=== PATIENT | female | born 1960 | race Caucasian/White ===

== ENCOUNTER → 2016-07-24 | Outpatient (REF) | payer OTHER ==
[~2016-07-24] MED LIST: CALCIUM CITRATE+D PO; ENAL5TAB PO; FAMOTIDINE PO; FERRO SEQUELS PO; IBUP200T2 PO; IMIP25TA2 PO; IRON PO; IRON28TA PO; LEVOTHYROXINE PO; LISIPOW PO; METOPROLOL PO; MULTIPLE VIT PO; VICO5TAB PO; VITAMIN B 12 PO; VITAMIN D PO; [UNRECOGNIZED DRUG - OTHER] PO
[2016-07-24 14:49] LABS: PERCENT SATURATION 22.6 % (13.2-37.4)
[2016-07-25 12:08] LABS: PRETREATED FOLATE FOR RBCFOL 11.6 NG/ML
== END ==
LOC: M LAB REF 13:36
PROVIDERS: ATTEND Nurse Practitioner Adult Health
DX: R74.8 Abnormal levels of other serum enzymes (principal); K91.2 Postsurgical malabsorption, not elsewhere classified

== ENCOUNTER → 2017-01-01 | Outpatient (REF) | payer OTHER ==
[2017-01-01 12:41] LABS: EOS # 0.1 K/mm3 (0.0-0.50); EOS % 1.2 % (0.0-3.0); LARGE UNSTAINED CELL # 0.1 K/mm3 (0.0-0.4); LARGE UNSTAINED CELL % 1.6 % (0.0-4.0); LYMPH % 35.8 % (24.0-44.0); MEAN CORPUSCULAR HEMOGLOBIN 31.3 pg (27.0-33.0); MEAN CORPUSCULAR HGB CONC 33.5 g/dl (32.0-36.5); MEAN CORPUSCULAR VOLUME 93.3 fl (80.0-96.0); MONO # 0.3 K/mm3 (0.0-0.8); MONO % 5.7 % (0.0-5.0); NEUTROPHILS # 2.9 K/mm3 (1.8-7.7); NEUTROPHILS % 54.6 % (36.0-66.0); PLATELET COUNT, AUTOMATED 245 k/mm3 (150-450); RED CELL DISTRIBUTION WIDTH 12.3 % (11.5-14.5); WHITE BLOOD COUNT 5.3 K/mm3 (4.0-10.0)
[2017-01-01 13:02] LABS: ALBUMIN 3.8 GM/DL (3.2-5.2); ALBUMIN/GLOBULIN RATIO 1.19 (1.00-1.93); ALKALINE PHOSPHATASE 97 U/L (45-117); ALT/SGPT 25 U/L (12-78); ANION GAP 7 MEQ/L (8-16); AST/SGOT 13 U/L (15-37); BILIRUBIN,TOTAL 0.4 MG/DL (0.2-1.0); BLOOD UREA NITROGEN 11 MG/DL (7-18); CALCIUM LEVEL 8.9 MG/DL (8.5-10.1); CARBON DIOXIDE LEVEL 29 MEQ/L (21-32); CHLORIDE LEVEL 105 MEQ/L (98-107); CREATININE FOR GFR 0.79 MG/DL (0.55-1.02); FERRITIN 62 NG/ML (8-252); GLOMERULAR FILTRATION RATE > 60.0 (>51); GLUCOSE, FASTING 81 MG/DL (70-105); MAGNESIUM LEVEL 2.1 MG/DL (1.8-2.4); PERCENT SATURATION 35.8 % (13.2-37.4); PHOSPHORUS LEVEL 3.3 MG/DL (2.5-4.9); POTASSIUM SERUM 4.2 MEQ/L (3.5-5.1); SODIUM LEVEL 141 MEQ/L (136-145); TOTAL IRON BINDING CAPACITY 293 UG/DL (250-450)
[2017-01-01 13:05] LABS: VITAMIN B12 LEVEL 1725 PG/ML (247-911)
[2017-01-02 10:56] LABS: PRETREATED FOLATE FOR RBCFOL 13.8 NG/ML
== END ==
LOC: M LABDRWAD 12:16
PROVIDERS: ATTEND Surgery
DX: K91.2 Postsurgical malabsorption, not elsewhere classified (principal); E55.9 Vitamin D deficiency, unspecified; Z98.84 Bariatric surgery status

== ENCOUNTER → 2017-08-14 | Outpatient (CLI) | payer OTHER | LOC: M WHC 11:17 | DX: Z12.31 Encounter for screening mammogram for malignant neoplasm of breast (principal) ==

== ENCOUNTER 2017-08-20 10:17 | Day surgery (SDC) | payer OTHER ==
[2017-08-20] MEDS: NS 1,000 ML IV (10:30)
[2017-08-20] MEDS ORDERED: PROPOFOL 200 MG/20 ML VIAL As Ordered (11:45)
[2017-08-20] MEDS ORDERED: LIDOCAINE 2% INJ 100 MG/5 ML SDV (FOR ANES.) As Ordered (11:45)
== END 2017-08-20 12:12 | disposition home or self-care (01) ==
LOC: M OPP 10:17
DX: Z12.11 Encounter for screening for malignant neoplasm of colon (principal); K57.30 Diverticulosis of large intestine without perforation or abscess without bleeding; E11.9 Type 2 diabetes mellitus without complications; E03.9 Hypothyroidism, unspecified; I73.00 Raynaud's syndrome without gangrene; E66.9 Obesity, unspecified; G47.30 Sleep apnea, unspecified; Z79.890 Hormone replacement therapy; Z98.0 Intestinal bypass and anastomosis status; Z98.890 Other specified postprocedural states; Z83.71 Family history of colonic polyps; Z86.010 Personal history of colon polyps; Z87.891 Personal history of nicotine dependence; Z88.5 Allergy status to narcotic agent
CPT/HCPCS: 45378

== ENCOUNTER → 2017-09-04 | Outpatient (CLI) | payer OTHER | LOC: M WUC 17:31 | DX: S16.1XXA Strain of muscle, fascia and tendon at neck level, initial encounter (principal) | CPT/HCPCS: 72052 ==

== ENCOUNTER 2019-04-19 08:06 | Emergency (ER) | payer OTHER ==
[~2019-04-19] VITALS: Ht 175.3 cm; Wt 104.5 kg
[~2019-04-19 08:06] MED LIST changes: +AMBI6.25 PO; +MULT1TAB10 PO; +VERA180C3 PO; +VITA500046 PO
[2019-04-19] MEDS ORDERED: OMEP-221 (08:19)
[2019-04-19] MEDS ORDERED: LEVO137T2 (08:19)
[2019-04-19] MEDS ORDERED: PROAAER10 (08:19)
[2019-04-19] MEDS ORDERED: HYDR25TAB (08:19)
[2019-04-19 09:01] LABS: BASO % 0.5 % (0.0-1.0); EOS # 0.1 10^3/uL (0.0-0.5); EOS % 1.2 % (0.0-3.0); HEMATOCRIT 41.3 % (36.0-47.0); HEMOGLOBIN 13.6 g/dl (12.0-15.5); LYMPH # 1.5 10^3/uL (1.5-5.0); LYMPH % 25.3 % (24.0-44.0); MEAN CORPUSCULAR HEMOGLOBIN 31.5 pg (27.0-33.0); MEAN CORPUSCULAR HGB CONC 32.9 g/dl (32.0-36.5); MEAN CORPUSCULAR VOLUME 95.6 fl (80.0-96.0); MONO # 0.3 10^3/uL (0.0-0.8); MONO % 5.7 % (0.0-5.0); NEUTROPHILS # 3.9 10^3/uL (1.5-8.5); PLATELET COUNT, AUTOMATED 218 10^3/uL (150-450); RED BLOOD COUNT 4.32 10^6/uL (4.00-5.40); WHITE BLOOD COUNT 5.8 10^3/uL (4.0-10.0)
[2019-04-19 09:13] LABS: ALBUMIN 3.6 GM/DL (3.2-5.2); ALT/SGPT 47 U/L (12-78); BILIRUBIN,DIRECT < 0.1 MG/DL (0.0-0.2); BILIRUBIN,TOTAL 0.3 MG/DL (0.2-1.0); BLOOD UREA NITROGEN 13 MG/DL (7-18); CALCIUM LEVEL 8.8 MG/DL (8.5-10.1); CARBON DIOXIDE LEVEL 27 MEQ/L (21-32); CHLORIDE LEVEL 107 MEQ/L (98-107); CK-MB VALUE MASS 1.7 NG/ML (<3.6); CPK CREATINE PHOSPHOKINASE 91 U/L (26-192); CREATININE FOR GFR 0.76 MG/DL (0.55-1.30); GLOMERULAR FILTRATION RATE > 60.0 (>51); GLUCOSE, FASTING 91 MG/DL (70-100); MB/CK RELATIVE INDEX 1.87 (< OR =4); NT-PRO BNP 44 PG/ML (<125); POTASSIUM SERUM 3.9 MEQ/L (3.5-5.1); SODIUM LEVEL 137 MEQ/L (136-145); THYROID STIMULATING HORMONE 0.369 uIU/ML (0.358-3.740); TOTAL PROTEIN 6.7 GM/DL (6.4-8.2); TROPONIN I < 0.02 NG/ML (< 0.10)
--- NOTE | 2019-04-19 09:28 | REP ---
Portable chest x-ray: Single view. History: Chest pain Comparison chest x-ray: February 09, 2012. Findings: Monitoring electrodes are seen. Lungs are well inflated and clear. The pleural angles are sharp. Heart size is normal. No significant bony abnormality is seen. Impression: No active cardiopulmonary disease seen. Electronically Signed by Adeel Richards MD 04/19/2019 09:18 A
[2019-04-19 09:53] LABS: INR 0.96; PARTIAL THROMBOPLASTIN TIME 26.2 SECONDS (25.0-38.4); PROTHROMBIN TIME 12.5 SECONDS (11.8-14.0)
[2019-04-19 09:56] LABS: D-DIMER QUANT 724.79 ng/ml (<500)
[2019-04-19 13:21] LABS: CK-MB VALUE MASS 1.5 NG/ML (<3.6); CPK CREATINE PHOSPHOKINASE 108 U/L (26-192); MB/CK RELATIVE INDEX 1.39 (< OR =4); TROPONIN I < 0.02 NG/ML (< 0.10)
[2019-04-19] MEDS ORDERED: ISOVUE-370 76% 100ML VIAL (Q9967) As Ordered ONE (13:31)
[2019-04-19 15:00] VITALS: BP 115/69
--- NOTE | 2019-04-19 15:10 | REP ---
CT PULMONARY ANGIOGRAM: WITH IV CONTRAST. HISTORY: Chest pain. COMPARISON STUDIES: Comparison CT ANGIO, February 09, 2012. CONTRAST DOSE: 75 mL of Isovue [address] TECHNIQUE: Helical scanning is acquired and overlapping 1.5 mm and contiguous 3 mm axial images are reformatted. In addition, maximum intensity projection and multiplanar re-formation images are generated in sagittal and coronal imaging projections. CT PULMONARY ANGIOGRAPHIC FINDINGS: There is good opacification of the pulmonary arterial tree. No filling defect or vessel cutoff is seen to suggest pulmonary embolus. Thoracic aorta shows no evidence of aneurysm or dissection. No hilar or mediastinal mass or adenopathy is appreciated. There is no evidence of pleural or pericardial effusion. There is a hiatal hernia. The patient is status post gastric bypass surgery. There is a small benign adrenal adenoma on the left, unchanged from the 2012 prior study. Visualized upper abdominal structures are otherwise unremarkable. No extrathoracic mass or adenopathy is seen. Lung window settings show no evidence of infiltrate or pulmonary mass lesion. There is a granulomatous calcification in the left upper lobe. There is another granulomatous calcification in the right upper lobe. No significant pulmonary nodule is appreciated. There are degenerative disc changes in the thoracic spine. IMPRESSION: No CT evidence of pulmonary embolus. Granulomatous calcifications in the lungs. Stable small left adrenal nodule. Status post gastric bypass. Small hiatal hernia. Electronically Signed by Adeel Richards MD 04/19/2019 05:57 P
--- NOTE | 2019-04-19 23:18 | ECGEPIP ---
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
--- NOTE | 2019-04-19 23:23 | ECGEPIP ---
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
== END 2019-04-19 15:24 | disposition home or self-care (01) ==
LOC: M ED 08:06 → EDBD 08:06 → M ED 15:24
DX: R07.89 Other chest pain (principal); E11.9 Type 2 diabetes mellitus without complications; I10 Essential (primary) hypertension; E78.5 Hyperlipidemia, unspecified; G47.30 Sleep apnea, unspecified; Z98.84 Bariatric surgery status; J98.4 Other disorders of lung; E27.9 Disorder of adrenal gland, unspecified; K44.9 Diaphragmatic hernia without obstruction or gangrene; Z79.899 Other long term (current) drug therapy; Z88.5 Allergy status to narcotic agent
CPT/HCPCS: 36415; 71045; 71275; 80048; 80076; 82550; 82553; 83880; 84443; 84484; 85025; 85379; 85610; 85730; 93005; 93041; 94760; 99285; Q9967

== ENCOUNTER 2019-06-24 08:34 | Emergency (ER) | payer OTHER ==
[~2019-06-24] VITALS: Ht 175.3 cm; Wt 105.0 kg
[~2019-06-24 08:34] MED LIST changes: +HYDR25TAB; +LEVO137T2; +OMEP-221; +PROAAER10
[2019-06-24 09:13] LABS: BASO # 0.1 10^3/uL (0.0-0.2); BASO % 0.8 % (0.0-1.0); EOS # 0.1 10^3/uL (0.0-0.5); EOS % 1.5 % (0.0-3.0); HEMATOCRIT 42.2 % (36.0-47.0); LYMPH % 33.8 % (24.0-44.0); MEAN CORPUSCULAR HEMOGLOBIN 30.8 pg (27.0-33.0); MEAN CORPUSCULAR HGB CONC 33.2 g/dl (32.0-36.5); MONO # 0.3 10^3/uL (0.0-0.8); MONO % 5.5 % (0.0-5.0); NEUTROPHILS # 3.5 10^3/uL (1.5-8.5); NEUTROPHILS % 58.1 % (36.0-66.0); PLATELET COUNT, AUTOMATED 249 10^3/uL (150-450); RED BLOOD COUNT 4.54 10^6/uL (4.00-5.40)
[2019-06-24 09:24] LABS: INR 0.96; PROTHROMBIN TIME 12.5 SECONDS (11.8-14.0)
[2019-06-24 09:25] LABS: PARTIAL THROMBOPLASTIN TIME 30.2 SECONDS (25.0-38.4)
--- NOTE | 2019-06-24 09:33 | REP ---
CHEST: Single view. There is no evidence of acute infiltrate. No pleural effusion is seen. The heart is normal in size. The mediastinal silhouette is unremarkable. The visualized osseous structures are intact. IMPRESSION: No acute pulmonary disease. Electronically Signed by Larry Rabago MD 06/29/2019 09:33 A
[2019-06-24 09:47] LABS: BLOOD UREA NITROGEN 14 MG/DL (7-18); CARBON DIOXIDE LEVEL 24 MEQ/L (21-32); CHLORIDE LEVEL 107 MEQ/L (98-107); CK-MB VALUE MASS 2.3 NG/ML (<3.6); CPK CREATINE PHOSPHOKINASE 138 U/L (26-192); CREATININE FOR GFR 0.83 MG/DL (0.55-1.30); FREE T4 1.11 NG/DL (0.76-1.46); GLOMERULAR FILTRATION RATE > 60.0 (>51); GLUCOSE, FASTING 83 MG/DL (70-100); MB/CK RELATIVE INDEX 1.67 (< OR =4); POTASSIUM SERUM 3.6 MEQ/L (3.5-5.1); SODIUM LEVEL 142 MEQ/L (136-145); TROPONIN I < 0.02 NG/ML (< 0.10)
--- NOTE | 2019-06-24 09:51 | REP ---
INDICATION: Facial numbness, bilateral. PROCEDURE: CT head without contrast COMPARISON STUDIES: No prior similar studies FINDINGS: No acute bleed or acute large vessel territorial infarct. Ventricles, cisterns and sulci within normal limits. No mass effect or midline shift. No abnormal fluid collections. A single ethmoid air cell on the left is opacified, the remainder of the paranasal sinuses and mastoid air cells are clear. CONCLUSION: No acute findings. Normal examination. Electronically Signed by Stef Ludwig MD 06/24/2019 09:43 A
[2019-06-24 13:31] LABS: CK-MB VALUE MASS 2.3 NG/ML (<3.6); CPK CREATINE PHOSPHOKINASE 120 U/L (26-192); MB/CK RELATIVE INDEX 1.92 (< OR =4); TROPONIN I < 0.02 NG/ML (< 0.10)
[2019-06-24 13:45] VITALS: BP 128/83
--- NOTE | 2019-06-25 09:49 | ECGEPIP ---
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
--- NOTE | 2019-06-25 09:55 | ECGEPIP ---
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
== END 2019-06-24 14:27 | disposition home or self-care (01) ==
LOC: M ED 08:34
DX: R07.9 Chest pain, unspecified (principal); E11.9 Type 2 diabetes mellitus without complications; I10 Essential (primary) hypertension; E78.5 Hyperlipidemia, unspecified; Z79.51 Long term (current) use of inhaled steroids; Z79.899 Other long term (current) drug therapy; Z88.5 Allergy status to narcotic agent; Z98.84 Bariatric surgery status

== ENCOUNTER → 2019-12-28 | Outpatient (CLI) | payer OTHER ==
[~2019-12-28] MED LIST changes: +ENAL5TA PO; -ENAL5TAB PO
--- NOTE | 2019-12-28 16:04 | REPMRS ---
Patient History The patient states she has not had a clinical breast exam in over a year. Family history of prostate cancer at age 66 in father, colorectal cancer at age 68 in maternal grandmother, breast cancer in paternal aunt, ovarian cancer at age 59 in paternal cousin. Digital Woman Screen Mammo: December 28, 2019 - Exam #: [id number] Bilateral CC and MLO view(s) were taken. Technologist: Selam Montaño, Technologist Prior study comparison: August 14, 2017, digital woman screen mammo performed at [facility]. February 23, 2015, digital woman screen mammo performed at [facility]. April 09, 2005, bilateral screening mammogram performed at [facility]. FINDINGS: There are scattered fibroglandular densities. The Volpara volumetric breast density category is:B. There has been no change in the appearance of the mammogram from the prior studies. There is a mild amount of scattered fibroglandular density which is fairly symmetric. There is no interval development of dominant mass, architectural distortion, or grouped microcalcification suggestive of malignancy. 3-D tomosynthesis shows no additional findings. Assessment: BI-RADS/ACR category 1 mammogram. Negative Mammogram. Recommendation Routine screening mammogram of both breasts in 1 year (for women over age 40). This patient's Lifetime Breast Cancer Risk is estimated at 11.9 %. This mammogram was interpreted with the aid of an FDA-approved computer-aided dectection system. Electronically Signed By: Je Richards MD 12/28/19 [id number]
== END ==
LOC: M WHC 14:34
PROVIDERS: ATTEND Registered Nurse
DX: Z12.31 Encounter for screening mammogram for malignant neoplasm of breast (principal)

== ENCOUNTER → 2020-02-08 | Outpatient (CLI) | payer OTHER ==
--- NOTE | 2020-02-17 10:24 | SLEEPHOME ---
DATE: 02/08/2020 ORDERED BY: Frida Vasquez Diagnostic home sleep testing was performed due to concern for the obstructive sleep apnea syndrome. For testing, a nocturnal T3 respiratory monitoring device was used. Continuous record was made of pulse, oxygen saturation, air flow, chest and abdominal strain, and body position. Nine hours and 59 minutes of data reviewed. There were 8 hours and 58 minutes marked as time in bed. During the interval marked time in bed, there were 84 respiratory events identified of 10 seconds in duration or greater for a respiratory event index of 9.4. The events were primarily obstructive. Baseline pulse rate 81. Pulse rate ranged 71-101. Baseline saturation was 93%. Saturations fell to 80%. Testing was performed in both the supine and non-supine positions. IMPRESSION: Abnormal home sleep testing with repetitive respiratory events and oxygen desaturations to 80% with a respiratory event index of 9.4 is consistent with the obstructive sleep apnea syndrome. RECOMMENDATION: The patient should be encouraged to undergo a formal sleep evaluation and in-laboratory pressure titration. MTDD
== END ==
LOC: M SLEEP HO 10:30
PROVIDERS: ATTEND Nurse Practitioner Adult Health
DX: G47.30 Sleep apnea, unspecified (principal)

== ENCOUNTER → 2020-03-27 | Outpatient (CLI) | payer OTHER ==
[~2020-03-27] MED LIST changes: +METHACHOLINE KIT (J7674) INH ONE
--- NOTE | 2020-03-27 15:52 | PFTRPT ---
Visit Date: 03/27/2020 Second ID: [id number] Height: 69.00 Inches Weight: 239.00 Lbs BSA: 2.23 Diagnosis: R06.02 DATE: 03/27/2020 ORDERED BY: Ezequiel Cruz D.O. QUALITY: Study of excellent technical quality. PROCEDURE: Under protocol, methacholine was administered. At a dose of 10 mg or 63.875 CDUs, a 32% decline of the FEV1 was noted. PC of 4.26 is clinically significant. Flow rates did return to baseline post-bronchodilator administration. IMPRESSION: Positive methacholine challenge study. MTDD
== END ==
LOC: M CARPUL 14:51
PROVIDERS: ATTEND Internal Medicine Pulmonary Disease
DX: R06.02 Shortness of breath (principal)
CPT/HCPCS: 94070; J7674

== ENCOUNTER → 2022-08-22 | Outpatient (CLI) | payer OTHER ==
[~2022-08-22] MED LIST changes: +ENAL1TAB48 PO; -ENAL5TA PO; +HYDR-3490; -HYDR25TAB; -METHACHOLINE KIT (J7674) INH ONE; -OMEP-221; +OMEP40CA5
== END ==
LOC: M WHC 11:28
PROVIDERS: ATTEND Nurse Practitioner Adult Health
DX: Z12.31 Encounter for screening mammogram for malignant neoplasm of breast (principal); R92.1 Mammographic calcification found on diagnostic imaging of breast

== ENCOUNTER → 2022-09-09 | Outpatient (CLI) | payer OTHER | LOC: M WHC 10:34 | PROVIDERS: ATTEND Nurse Practitioner Adult Health | DX: R92.1 Mammographic calcification found on diagnostic imaging of breast (principal) | CPT/HCPCS: 77065; G0279 ==

== ENCOUNTER → 2022-09-23 | Outpatient (CLI) | payer OTHER ==
[~2022-09-23] MED LIST changes: +**SFHN** SODIUM BICARBONATE 8.4% 10MEQ 10ML VIAL ONE; +LIDOCAINE 1% MDV 20ML VIAL ONE; +TOPI25CA5 PO
[2022-09-23 11:15] VITALS: BP 94/52
== END ==
LOC: M WHCPRO 09:37
PROVIDERS: ATTEND Nurse Practitioner Adult Health
DX: R92.8 Other abnormal and inconclusive findings on diagnostic imaging of breast (principal); N63.21 Unspecified lump in the left breast, upper outer quadrant; N63.25 Unspecified lump in the left breast, overlapping quadrants

== ENCOUNTER → 2023-07-28 | Outpatient (REF) | payer OTHER ==
[~2023-07-28] MED LIST changes: -**SFHN** SODIUM BICARBONATE 8.4% 10MEQ 10ML VIAL ONE; -LIDOCAINE 1% MDV 20ML VIAL ONE
[2023-07-28 13:02] LABS: VITAMIN B12 LEVEL 781 PG/ML (211-911)
== END ==
LOC: M LAB REF 12:11
PROVIDERS: ATTEND Nurse Practitioner Adult Health
DX: Z98.84 Bariatric surgery status (principal); R41.3 Other amnesia

== ENCOUNTER → 2023-08-31 | Outpatient (CLI) | payer OTHER | LOC: M PLAIMG 09:50 | PROVIDERS: ATTEND Nurse Practitioner Adult Health | DX: R25.1 Tremor, unspecified (principal); R41.3 Other amnesia ==

== ENCOUNTER → 2023-09-28 | Outpatient (CLI) | payer OTHER | LOC: M WHC 08:50 | PROVIDERS: ATTEND Nurse Practitioner Adult Health | DX: Z12.31 Encounter for screening mammogram for malignant neoplasm of breast (principal) ==

== ENCOUNTER → 2024-01-06 | Outpatient (CLI) | payer OTHER | LOC: M WUC 10:43 | PROVIDERS: ATTEND Student in an Organized Health Care Education/Training Program | DX: S20.213A Contusion of bilateral front wall of thorax, initial encounter (principal); Y93.9 Activity, unspecified; Y92.9 Unspecified place or not applicable ==

== ENCOUNTER → 2024-07-07 | Outpatient (REF) | payer OTHER | LOC: M LAB REF 12:49 | PROVIDERS: ATTEND Nurse Practitioner Adult Health | DX: R25.1 Tremor, unspecified (principal) ==